=== PATIENT | female | born 1960 | race Caucasian/White ===

== ENCOUNTER 2017-03-15 17:08 | Emergency (ER) | payer MEDICAID ==
[~2017-03-15] VITALS: Ht 185.4 cm; Wt 117.9 kg
[~2017-03-15 17:08] MED LIST: AMLO10TA2; KLOR CON; NIASPAN; NORVASC; VALS40TA2; ZOLP-158
[2017-03-15 17:20] VITALS: BP 172/96
[2017-03-15] MEDS ORDERED: cefTRIAXone 1GM/50ML D5W 50 ML IV ONE (21:51)
== END 2017-03-15 20:29 | disposition left against medical advice (07) ==
LOC: ER 17:47
DX: R03.0 Elevated blood-pressure reading, without diagnosis of hypertension (principal); Z53.21 Procedure and treatment not carried out due to patient leaving prior to being seen by health care provider
CPT/HCPCS: J0696